=== PATIENT | male | born 1990 | race African-American/Black ===

== ENCOUNTER 2023-03-22 01:05 | Emergency (ER) | payer MEDICAID ==
[~2023-03-22] VITALS: Ht 177.8 cm; Wt 97.0 kg
[2023-03-22 01:14] VITALS: BP 131/76
[2023-03-22 02:59] LABS: BASOPHILS % 0.5 % (0.0-2.0); EOSINOPHILS % 0.7 % (0.0-5.0); HEMATOCRIT. 45.1 % (42.0-52.0); HEMOGLOBIN. 15.7 g/dL (14.0-18.0); LYMPHOCYTES % 15.3 % (20.0-50.0); MEAN CORPUSCULAR HEMOGLOBIN 28.4 pg (28.0-32.0); MEAN CORPUSCULAR VOLUME 81.7 fL (80.0-94.0); MEAN PLATELET VOLUME 8.8 fl (7.4-10.4); MONOCYTES % 14.4 % (2.0-8.0); NEUTROPHILS % 69.1 % (40.0-76.0); PLATELET 255 x1000/uL (130-400); RED BLOOD CELL COUNT 5.52 mill/uL (4.7-6.1); RED CELL DISTRIBUTION WIDTH 14.8 % (11.6-14.6)
[2023-03-22 03:02] LABS: CHLORIDE 104 mEq/L (98-107)
[2023-03-22 03:11] LABS: CLARITY URINE CLEAR (CLEAR); COLOR URINE DARK YELLOW (YELLOW); KETONES URINE 1+ (NEGATIVE); LEUKOCYTE ESTERASE URINE NEGATIVE (NEGATIVE); NITRITE URINE NEGATIVE (NEGATIVE); OCCULT BLOOD URINE 1+ (NEGATIVE); PH URINE 5.5 (4.5-8.0); PROTEIN URINE 1+ (NEGATIVE); SPECIFIC GRAVITY URINE 1.038 (1.005-1.030)
[2023-03-22] MEDS ORDERED: ACET-2708 MT (03:21)
[2023-03-22] MEDS ORDERED: DEXAMETHASONE 0.5MG/5ML ORAL SYR PO ONE (03:30)
[2023-03-22] MEDS ORDERED: ACETAMINOPHEN 325MG TABLET PO ONE (03:30)
== END 2023-03-22 04:51 | disposition home or self-care (01) ==
LOC: ER 01:05
DX: J02.9 Acute pharyngitis, unspecified (principal); R50.9 Fever, unspecified
CPT/HCPCS: 36415; 80053; 81003; 85025; 87070; 87430; 99283; J8540

== ENCOUNTER 2023-03-25 08:25 | Emergency (ER) | payer MEDICAID ==
[~2023-03-25] VITALS: Ht 177.8 cm; Wt 97.5 kg
[~2023-03-25 08:25] MED LIST: ACET-2708 MT
[2023-03-25 08:36] VITALS: BP 146/69
[2023-03-25] MEDS ORDERED: AMOX-494 MT (09:26)
== END 2023-03-25 09:57 | disposition home or self-care (01) ==
LOC: ER 08:25
DX: J02.0 Streptococcal pharyngitis (principal)
CPT/HCPCS: 99283

== ENCOUNTER 2024-03-18 22:52 | Emergency (ER) | payer MEDICAID ==
[~2024-03-18] VITALS: Ht 177.8 cm; Wt 96.0 kg
[~2024-03-18 22:52] MED LIST changes: +AMOX-494 MT; +CLOT15CR27 TP
[2024-03-18 23:02] VITALS: BP 128/85; PULSE 97; RESP 18; TEMP 98.4; O2SAT 97
[2024-03-19] MEDS ORDERED: AMOX-494 MT (01:08)
[2024-03-19] MEDS ORDERED: PECT2.8L4 MM ×2 (01:09→01:10)
== END 2024-03-19 01:33 | disposition home or self-care (01) ==
LOC: ER 22:52
DX: J02.0 Streptococcal pharyngitis (principal); Z79.899 Other long term (current) drug therapy; Z20.822 Contact with and (suspected) exposure to COVID-19
CPT/HCPCS: 87426; 87430; 87804; 99283